=== PATIENT | female | born 1975 | race Two or more races ===

== ENCOUNTER 2024-08-17 12:15 | Day surgery (SDC) | payer MEDICAID, SELFPAY ==
[2024-08-16 09:50] LABS: HCG Qualitative,Urine Negative
[2024-08-16 14:51] VITALS: BMI 25.4
[2024-08-17] VITALS (11 sets, daily range): BP systolic 109–134; BP diastolic 59–82; PULSE 74–99; RESP 14–22; TEMP 36.6–36.9; O2SAT 98–100; BMI 25.7
[2024-08-17] MEDS: MIDAZOLAM INJ 1 MG/ML VIAL 2 ML (ASD USE ONLY) 2 MG IV (14:55)
[2024-08-17] MEDS: fentaNYL CIT INJ 50 mCg/ML AMP 2ML (ASD USE ONLY) IV (14:58)
--- NOTE | 2024-08-17 15:10 | SUR.PHASEII ---
PATIENT INTO RECOVERY WITH NO ACUTE DISTRESS NOTED, V/S STABLE, NO COMPLAINTS OF PAIN OR NAUSEA AT THIS TIME, PATIENT PASSING FLATUS.
== END 2024-08-17 15:44 | disposition home or self-care (01) ==
PROVIDERS: PCP Physician Assistant; Referring Provider Surgery; Visit Provider Surgery
PROC: 0DBE8ZX Excision of Large Intestine, Via Natural or Artificial Opening Endoscopic, Diagnostic (ICD-10-PCS; CPT 45380; principal; 2024-08-17 14:30)
DX: Z12.11 Encounter for screening for malignant neoplasm of colon (principal)
CPT/HCPCS: 45378; 81025; A4217; J2250; J3010

== ENCOUNTER → 2024-10-30 | Outpatient (CLI) | payer MEDICAID, SELFPAY ==
--- NOTE | 2024-10-30 13:15 | XR_ITS ---
Examination: Screening digital mammography, bilateral Computer aided detection 3-D breast Tomosynthesis, bilateral Date and time of exam: October 30, 2024 1253 hours Compared to mammograms dating to September 05, 2019 Indication: Screening Technique: Nonmagnified MLO, CC views of the breasts to been obtained, reconstructed from 3-D Tomosynthesis images. R2 computer aided detection program utilized for evaluation of suspicious masses and/or abnormal calcifications. 3-D Tomosynthesis images obtained. Findings: The breasts are heterogeneously dense, which may obscure small masses Benign calcifications. 6 mm focal asymmetry outer right breast anterior depth, 4.5 cm from the nipple IMPRESSION: BI-RADS Category 0: Incomplete: Need additional imaging evaluation 6 mm focal asymmetry outer right breast anterior depth, 4.5 cm from the nipple, recommend follow-up spot tomographic views upper outer quadrant right breast anterior depth right breast sonography to complete the workup
== END | disposition home or self-care (01) ==
LOC: CDIM 12:40
PROVIDERS: PCP Physician Assistant; Referring Provider Physician Assistant; Visit Provider Physician Assistant
DX: Z12.31 Encounter for screening mammogram for malignant neoplasm of breast (principal); N64.89 Other specified disorders of breast; R92.8 Other abnormal and inconclusive findings on diagnostic imaging of breast
CPT/HCPCS: 77063; 77067

== ENCOUNTER → 2024-12-05 | Outpatient (CLI) | payer MEDICAID, SELFPAY ==
--- NOTE | 2024-12-05 14:00 | XR_ITS ---
Examination: Transvaginal ultrasound of the pelvis, complete Technique: Transvaginal sonographic images pelvis performed using barbosa scale imaging Exam date and time: December 05, 2024 1459 hours INDICATIONS: Irregular heavy menses beginning 6 months ago FINDINGS: Uterus 7.3 cm endometrial stripe 0.2 cm Uterine fundal mass 23 x 24 x 23 mm Right ovary 2.6 cm arterial flow 17 mm follicular cyst Left ovary 2.9 cm arterial flow IMPRESSION: Uterine fundal area of probable fibroid degeneration 23 x 24 x 23 mm, recommend 6 month follow-up transvaginal pelvic sonography.
--- NOTE | 2024-12-05 14:00 | XR_ITS ---
Examination: Pelvic ultrasound, transabdominal, complete Technique: Transabdominal ultrasound of the pelvis performed using grayscale imaging Date and time of exam: December 05, 2024 1449 hours INDICATIONS: Irregular heavy menses 6 months FINDINGS: Uterus 7.2 cm endometrial stripe 0.2 cm Uterine fundal mass 27 x 20 x 30 mm Ovaries obscured by bowel gas IMPRESSION: Uterine fundal area of likely fibroid degeneration 2.7 x 2.0 x 3.0 cm, recommend 6 month follow-up transvaginal pelvic sonography
== END | disposition home or self-care (01) ==
PROVIDERS: PCP Physician Assistant; Referring Provider Physician Assistant; Visit Provider Physician Assistant
DX: N85.9 Noninflammatory disorder of uterus, unspecified (principal)
CPT/HCPCS: 76830; 76856

== ENCOUNTER → 2025-01-10 | Outpatient (CLI) | payer MEDICAID, SELFPAY ==
--- NOTE | 2025-01-10 13:00 | XR_ITS ---
Examination: Breast ultrasound, unilateral, right complete Date and time of exam: January 10, 2025 1318 hours INDICATIONS: Mammogram October 30, 2024 6 mm focal asymmetry outer right breast anterior depth 4.5 cm from the nipple Technique: Real-time barbosa scale ultrasonographic imaging performed right breast including all 4 quadrants as well as nipple retroareolar and axillary region. Findings: 3:00 cyst 4 x 4 mm 3:00 cyst 6 x 6 mm 6:00 cyst 8 x 10 mm 10:00 cyst 4 x 4 millimeter No solid nodules IMPRESSION: BI-RADS Category 2: Benign findings
--- NOTE | 2025-01-10 14:15 | XR_ITS ---
Examination: Diagnostic digital mammography, unilateral, right Computer aided detection 3-D breast Tomosynthesis, unilateral Date and time of exam: January 10, 2025 1552 hours INDICATIONS: Mammogram October 30, 2024 6 mm focal asymmetry outer right breast 4.5 cm from the nipple Technique: Nonmagnified MLO, CC views of the right breast have been obtained, reconstructed from 3-D Tomosynthesis images. R2 computer aided detection program utilized for evaluation of suspicious masses and/or abnormal calcifications. 3-D Tomosynthesis images obtained. Findings: The breast is heterogeneously dense, which may obscure small masses No suspicious mass is depicted on the spot compression views Impression: BI-RADS category 2: Benign findings Return to yearly follow-up mammography
== END | disposition home or self-care (01) ==
LOC: CDIM 12:58
PROVIDERS: PCP Physician Assistant; Referring Provider Physician Assistant; Visit Provider Physician Assistant
DX: R92.321 Mammographic fibroglandular density, right breast (principal); N60.01 Solitary cyst of right breast
CPT/HCPCS: 76641; 77061; 77065; G0279

== ENCOUNTER 2025-07-03 12:56 | Outpatient (RCR) | payer MEDICAID, SELFPAY | END 2025-07-08 23:59 | disposition home or self-care (01) | LOC: SCTC 12:56 | PROVIDERS: PCP Physician Assistant; Referring Provider Physician Assistant; Visit Provider Nurse Practitioner Family | DX: D64.9 Anemia, unspecified (principal); N92.0 Excessive and frequent menstruation with regular cycle; Z86.73 Personal history of transient ischemic attack (TIA), and cerebral infarction without residual deficits | CPT/HCPCS: 99213; G0463 ==